=== PATIENT | male | born 1940 | race Two or more races ===

== ENCOUNTER 2021-10-31 20:50 | Emergency (ER) | payer OTHER ==
[~2021-10-31] VITALS: Ht 167.6 cm; Wt 72.6 kg
--- NOTE | 2021-10-31 21:43 | NUR ---
BIBWIFE C/O COUGH X3 DAYS.PT AWAKE AND ALERT X4 BREATHING EVEN AND UNABORED SATTING 100% RA AND AFEBRILE. AMBULATED TO ER 6 WITH STEADY GAIT AND ISOLATION PRECAUTIONS IN PLACE.
--- NOTE | 2021-10-31 22:19 | NUR ---
COVID PCR SWAB COLLECTED AND SENT TO LAB
[2021-10-31] MEDS ORDERED: BENZ-13 PO (22:58)
--- NOTE | 2021-10-31 23:40 | NUR ---
Patient discharged to home in stable condition. Written and verbal after care instructions given. Patient verbalizes understanding of instruction.
[2021-10-31 23:49] VITALS: BP 153/82
== END 2021-10-31 23:49 | disposition home or self-care (01) ==
LOC: ER 21:00
DX: R05.9 Cough, unspecified (principal); I51.7 Cardiomegaly; R03.0 Elevated blood-pressure reading, without diagnosis of hypertension
CPT/HCPCS: 71045; 99284; C9803; U0003